=== PATIENT | male | born 1990 | race Caucasian/White ===

== ENCOUNTER 2017-02-21 17:44 | Emergency (ER) | payer SELFPAY ==
[~2017-02-21] VITALS: Ht 182.9 cm; Wt 79.4 kg
[2017-02-21 17:57] VITALS: BP 145/82
--- NOTE | 2017-02-21 18:18 | PHYS DOC ---
Past Medical History Past Medical History: Other Additional Past Medical Histor: ADD Past Surgical History: No Surgical History Alcohol Use: None Drug Use: None Adult General Chief Complaint Chief Complaint: LACERATION/AVULSION HPI HPI Patient is a 26 year old male presents to the emergency department stating that he was thrown away a porcelain stool when he was contacted the left thumb. He has a large laceration noted. He does have bleeding noted from the site. A pressure has been applied with ice pack. Patient's immunizations are not up to date. He is unsure when his last tetanus shot is. He has full range of motion of the thumb he does have good sensation noted to the thumb. Patient does state he is right-hand dominant. Review of Systems Review of Systems Constitutional: Denies fever or chills [] Eyes: Denies change in visual acuity, redness, or eye pain [] HENT: Denies nasal congestion or sore throat [] Respiratory: Denies cough or shortness of breath [] Cardiovascular: No additional information not addressed in HPI [] GI: Denies abdominal pain, nausea, vomiting, bloody stools or diarrhea [] : Denies dysuria or hematuria [] Musculoskeletal: Denies back pain or joint pain [] Integument: Denies rash or skin lesions. Laceration left thumb Neurologic: Denies headache, focal weakness or sensory changes [] Endocrine: Denies polyuria or polydipsia [] Current Medications Current Medications Current Medications Medications (Trade) Dose Ordered Sig/Traci Start Time Stop Time Status Last Admin Dose Admin Diphtheria/ Tetanus/Acell Pertussis (Boostrix) 0.5 ml ONCE ONCE 02/21/17 18:30 02/21/17 18:31 DC 02/21/17 18:26 0.5 ML Lidocaine/ Epinephrine (Xylocaine 1%-Epi 1:100,000) 20 ml 1X ONCE 02/21/17 18:30 02/21/17 18:31 DC 02/21/17 18:29 20 ML Allergies Allergies Allergies Coded Allergies Type Severity Reaction Last Updated Verified No Known Drug Allergies 02/21/17 No Physical Exam Physical Exam Constitutional: Well developed, well nourished, no acute distress, non-toxic appearance. [] HENT: Normocephalic, atraumatic, bilateral external ears normal, oropharynx moist, no oral exudates, nose normal. [] Eyes: PERRLA, EOMI, conjunctiva normal, no discharge. [] Neck: Normal range of motion, no tenderness, supple, no stridor. [] Cardiovascular:Heart rate regular rhythm, no murmur [] Lungs & Thorax: Bilateral breath sounds clear to auscultation [] Skin: Warm, dry, no erythema, no rash. Laceration to the left thumb approximately 4 cm in length gapping. Cap refill to left thumb less than 2 seconds. Back: No tenderness Extremities: No tenderness, no cyanosis, no clubbing, ROM intact, no edema. [] Neurologic: Alert and oriented X 3, normal motor function, normal sensory function, no focal deficits noted. [] Psychologic: Affect normal, judgement normal, mood normal. [] Current Patient Data Vital Signs Vital Signs Date Time Temp Pulse Resp B/P (MAP) Pulse Ox O2 Delivery O2 Flow Rate FiO2 02/21/17 17:57 99.4 80 20 145/82 (103) 96 Room Air 99.4 EKG EKG [] Radiology/Procedures Radiology/Procedures Left hand has soft tissue gas but no obvious foreign body or fracture. Impressions: Indication: [Left thumb and wrist laceration] Procedure: The patient was placed in the appropriate position and anesthesia around the 5 mL of 1% lidocaine with epinephrine. The area was then lanced with Betadine and irrigated copiously with saline. The laceration was closed with 7 4 -0 nylon sutures. Total repaired wound length: 7 cm. Other Items: Tendon laceration visualized Well Complications: None Course & Med Decision Making Course & Med Decision Making Pertinent Labs and Imaging studies reviewed. (See chart for details) Patient continued to have significant amount of bleeding coming from the left thumb area. Dr. Rueda was notified to assist with laceration repair. Dr. Rueda has since taken over care of the patient. Dr. Rueda - I took over care of patient and patient was examined in a bloodless field and he was found to have a flexor tendon laceration that is partial. He has no bleeding to his hand on my examination. He has laceration to the muscle belly as well although he does have good range of motion and strength with all movements of his thumb. Patient will to need hand surgery follow-up. I spoke to Dr. Ceron at [facility] and he said to have patient follow with Dr. Baig tomorrow at his office and gave me phone number for him to call. Patient aware and agreeable with plan for discharge and verbalized understanding that he needs hand surgery follow-up tomorrow in the strict ER return precautions discussed worsening pain bleeding fevers swelling or other general concerns. Patient did verbalize understanding of the seriousness of his injury and the need for follow-up. [] Dragon Disclaimer Dragon Disclaimer This electronic medical record was generated, in whole or in part, using a voice recognition dictation system. Departure Departure Impression: Primary Impression: Laceration of thumb, left, complicated Disposition: HOME, SELF-CARE Condition: GOOD Patient Instructions: Laceration Care, Adult Additional Instructions: YOU HAVE A COMPLICATED THUMB LACERATION THAT WILL REQUIRE HAND SURGEON FOLLOW UP. I SPOKE TO AND THEY WANT YOU TO FOLLOW TOMORROW. CALL [phone] TOMORROW MORNING AND SAY THAT YOU ARE TO FOLLOW WITH DR. BAIG TOMORROW AT THE [facility]. CALL AROUND 8-9 AM. COME BACK TO THE ED WITH WORSENING PAIN , BLEEDING, OR OTHER GENERAL CONCERNS. THANK YOU! Scripts Hydrocodone/Apap 5-325 (NORCO 5-325 TABLET) 1 Each Tablet 1 TAB PO PRN Q6HRS Y for PAIN, #20 TAB 0 Refills Prov: LOGAN RUEDA DO 02/21/17 Cephalexin (KEFLEX) 500 Mg Capsule 1 CAP PO BID, #10 CAP Prov: LOGAN RUEDA DO 02/21/17 Problem Qualifiers Primary Impression: Laceration of thumb, left, complicated Encounter type: initial encounter Qualified Codes: S61.012A - Laceration without foreign body of left thumb without damage to nail, initial encounter MANDI ESCOTO [employer] Feb 21, 2017 18:18 LOGAN RUEDA DO Feb 21, 2017 19:42
[2017-02-21] MEDS ORDERED: DIPHTH,PERTUSS(ACELL),TET TOX 0.5 ML DISP.SYRIN. VAX IM ONE (18:30)
[2017-02-21] MEDS ORDERED: LIDOCAINE 1%/EPI 1:100,000 20 ML VIAL. INJ ONE (18:30)
[2017-02-21] MEDS ORDERED: HYDR-971 PO (19:42)
[2017-02-21] MEDS ORDERED: CEPH-264 PO (19:42)
--- NOTE | 2017-02-22 07:50 | RAD ---
Left hand, 3 views, 02/21/2017: History: Laceration There is a tiny radiopacity projected along the radial aspect of the first MCP joint. This probably represents a small avulsion fracture arising from the proximal end of the proximal phalanx. Its sclerotic margins suggest an old injury. A radiopaque foreign body in the soft tissues is a less likely possibility. There is mild adjacent soft tissue deformity and a couple of tiny bubbles of gas in the soft tissues compatible with the history of a laceration. No major fracture or dislocation is evident.
== END 2017-02-21 20:57 | disposition home or self-care (01) ==
LOC: ER 17:44
DX: S61.012A Laceration without foreign body of left thumb without damage to nail, initial encounter (principal); W26.8XXA Contact with other sharp object(s), not elsewhere classified, initial encounter; Y93.89 Activity, other specified; Y99.8 Other external cause status; Y92.89 Other specified places as the place of occurrence of the external cause
CPT/HCPCS: 12002; 73130; 90471; 90715; 99284; J3490